=== PATIENT | male | born 1990 | race Native Hawaiian/Other Pacific Islander ===

== ENCOUNTER 2021-02-02 12:55 | Emergency (ER) | payer OTHER ==
[~2021-02-02] VITALS: Ht 172.7 cm; Wt 70.3 kg
[2021-02-02 13:04] VITALS: TEMP 98
[2021-02-02 17:30] VITALS: BP 107/78
== END 2021-02-02 17:30 | disposition home or self-care (01) ==
LOC: ED 12:55
DX: S06.0X0D Concussion without loss of consciousness, subsequent encounter (principal); S16.1XXD Strain of muscle, fascia and tendon at neck level, subsequent encounter; T14.8XXD Other injury of unspecified body region, subsequent encounter; V57 Occupant of pick-up truck or van injured in collision with fixed or stationary object; Y92.89 Other specified places as the place of occurrence of the external cause
CPT/HCPCS: 99283

== ENCOUNTER 2021-02-13 09:05 | Emergency (ER) | payer OTHER ==
[~2021-02-13] VITALS: Ht 172.7 cm; Wt 70.3 kg
[2021-02-13 09:13] VITALS: BP 104/70; TEMP 96.3
== END 2021-02-13 09:43 | disposition home or self-care (01) ==
LOC: ED 09:05
DX: S29.012D Strain of muscle and tendon of back wall of thorax, subsequent encounter (principal); S39.012D Strain of muscle, fascia and tendon of lower back, subsequent encounter; S16.1XXD Strain of muscle, fascia and tendon at neck level, subsequent encounter; S76.812D Strain of other specified muscles, fascia and tendons at thigh level, left thigh, subsequent encounter; V89.2XXD Person injured in unspecified motor-vehicle accident, traffic, subsequent encounter; Y92.89 Other specified places as the place of occurrence of the external cause
CPT/HCPCS: 99281